=== PATIENT | female | born 1975 | race Caucasian/White ===

== ENCOUNTER 2016-06-19 20:23 | Observation (INO) | payer OTHER ==
[~2016-06-19] VITALS: Ht 162.6 cm; Wt 95.0 kg
[~2016-06-19 20:23] MED LIST: ALSUMA6 MG/0.5 M SQ; AMOXICILLIN500 MG PO; AVINza PO; CLONAZEPAM0.5 MG PO; DESYREL12.5 MG PO; DOXYCYCLINE HY100 M1 PO; IMITREX4 MG/0.5 M IM; IMITREX50 MG PO; Imitrex SC; KLONOPIN PO; METOCLOPRAM5 MG/5 ML PO; MORPHINE PO; NAPROXEN500 MG PO; OXYCODONE PO; OXYCODONE30 MG PO; PERCOCET; PHENERGAN PO; PROMETHAZI6.25 MG/5 PO; PROTONIX40 MG PO; Proventil,Ventolin H IH; SOMA PO; SOMA350 MG PO; SUMATRIPTA6 MG/0.52 SC; ZOFRAN4 MG PO
[2016-06-20 00:04] LABS: HEMATOCRIT 40.9 % (36.0-46.0); MCH 31.5 PG (29.0-34.0); MCHC 35.5 G/DL (30.0-36.0); MCV 88.7 FL (83-99); MEAN PLAT.VOLUME 9.6 uM^3 (9.5-12.4); PLATELET COUNT 338 K/uL (156-360); RBC DIS.WIDTH-CV 12.7 % (11.8-14.6); RBC DIS.WIDTH-SD 40.4 % (39-53); RED BLOOD COUNT 4.61 M/uL (3.80-5.20); WHITE BLOOD COUNT 15.5 K/uL (4.1-10.2)
[2016-06-20 00:13] LABS: CHLORIDE 96 mEq/L (99-109); POTASSIUM 2.6 mEq/L (3.7-5.4); SODIUM 141 mEq/L (136-147)
[2016-06-20 00:15] LABS: GLUCOSE 119 mg/dL (70-99)
[2016-06-20 00:17] LABS: ANION GAP 17 MEQ/L (2-14); TOTAL BILIRUBIN 0.4 mg/dL (0.0-1.0)
[2016-06-20 00:19] LABS: ADD MIUA? YES; BILIRUBIN SMALL; BLOOD NEGATIVE; COLOR YELLOW ((YELLOW)); GLUCOSE (STRIP) NEGATIVE; KETONES >=80; LEUKOCYTES NEGATIVE; NITRITE NEGATIVE; PH, URINE 6.5 (5-8); PROTEIN (STRIP) 100; SPECIFIC GRAVITY 1.032 (1.000-1.030); UROBILINOGEN 0.2 MG/DL (0.2-1.0)
[2016-06-20 00:19] LABS: ALKALINE PHOSPHATASE 82 IU/L (3-129); GFR ESTIMATE (CALCULATED) > 59 mL/min/
[2016-06-20 00:20] LABS: UREA NITROGEN (BUN) 18 mg/dL (9-23)
[2016-06-20 00:22] LABS: LIPASE 60 U/L (1.0-51.0)
[2016-06-20 00:40] LABS: BACTERIA 2+; CASTS NONE SEEN /LPF; EPITHELIAL CELLS 2+; MUCUS 1+; RED BLOOD CELLS NONE SEEN /HPF (0-5); WHITE BLOOD CELLS RARE /HPF (0-5)
[2016-06-20 00:41] LABS: CRYSTALS NONE SEEN
[2016-06-20 01:35] LABS: QUANTITATIVE HCG < 4.0 MIU/ML
[2016-06-20 05:39] VITALS: BP 110/58
[2016-06-20 07:28] LABS: HEMATOCRIT 32.2 % (36.0-46.0); MCH 30.8 PG (29.0-34.0); MCHC 33.9 G/DL (30.0-36.0); PLATELET COUNT 249 K/uL (156-360); RBC DIS.WIDTH-SD 43.5 % (39-53); RED BLOOD COUNT 3.54 M/uL (3.80-5.20); WHITE BLOOD COUNT 9.2 K/uL (4.1-10.2)
[2016-06-20 07:55] LABS: ALKALINE PHOSPHATASE 50 IU/L (3-129); ANION GAP 10 MEQ/L (2-14); CHLORIDE 103 MEQ/L (99-109); GFR ESTIMATE (CALCULATED) > 59 mL/min/; GLUCOSE 124 mg/dL (70-99); SAMPLE HEMOLYSIS CHECK 0; SAMPLE ICTERIC CHECK 0; SAMPLE LIPEMIA CHECK 0; SODIUM 138 MEQ/L (136-147); TOTAL BILIRUBIN 0.3 MG/DL (0.0-1.0); UREA NITROGEN (BUN) 16 mg/dL (9-23)
[2016-06-20 07:57] LABS: POTASSIUM 3.2 MEQ/L (3.7-5.4)
[2016-06-20 08:00] VITALS: BP 90/53
[2016-06-20] MEDS ORDERED: SOMA350 MG PO (12:50)
[2016-06-20] MEDS ORDERED: OXYCODONE HCL30 MG PO (12:52)
[2016-06-20] MEDS ORDERED: KADIAN60 MG PO (12:52)
[2016-06-20] MEDS ORDERED: KLONOPIN0.5 M1 PO (12:52)
[2016-06-20] MEDS ORDERED: PROMETHAZINE HC25 M1 PO (12:53)
[2016-06-20] MEDS ORDERED: LIDOCAINE700 MG TD (12:53)
== END 2016-06-20 15:28 | disposition home or self-care (01) ==
LOC: EME 20:23 → RME 20:23 → EDOF 06-20 03:34 → 5WEST 06-20 05:07
PROVIDERS: Internal Medicine; Physician Assistant
DX: F11.23 Opioid dependence with withdrawal (principal); R11.2 Nausea with vomiting, unspecified; E87.6 Hypokalemia; E86.0 Dehydration; G89.29 Other chronic pain; M54.5 Low back pain; E66.9 Obesity, unspecified; Z68.35 Body mass index [BMI] 35.0-35.9, adult
CPT/HCPCS: 74176; 80053; 81003; 83690; 84702; 85027; 93005; 99281; 99285; G0378; J1170; J1885; J2060; J2405; J2550; J2765; J3480; J7030; S0028